=== PATIENT | female | born 1935 | race Caucasian/White ===

== ENCOUNTER 2017-10-06 10:15 | Emergency (ER) | payer MEDICARE ==
[~2017-10-06] VITALS: Ht 157.5 cm; Wt 84.0 kg
[~2017-10-06 10:15] MED LIST: AVAP300T PO; CALC1TAB53; CHOL1CAP6 PO; GLUC500C3 PO; NYST100024 TOP; ZOLP10TA3 PO; chondroitin
[2017-10-06 10:17] VITALS: BP 126/62; PULSE 98; RESP 20; TEMP 98.3; O2SAT 94
[2017-10-06] MEDS ORDERED: IRBE300T44 PO (10:24)
--- NOTE | 2017-10-06 11:06 | RADRPT ---
EXAM DATE/TIME: 10/06/2017 10:56 [place] COMPARISON: No previous studies available for comparison. INDICATIONS : Cough, chest congestion, short of breath, chest pains MEDICAL HISTORY : None. SURGICAL HISTORY : None. ENCOUNTER: Initial ACUITY: 1 day PAIN SCORE: 5/10 LOCATION: Bilateral chest FINDINGS: A single view of the chest demonstrates the lungs to be symmetrically aerated without evidence of mas s, infiltrate or effusion. The cardiomediastinal contours are unremarkable. Osseous structures are intact. CONCLUSION: The lungs are clear. Agustin Levy MD on October 06, 2017 at 11:04 Board Certified Radiologist. This report was verified electronically.
[2017-10-06] MEDS ORDERED: ALBUAER3 INH (11:32)
[2017-10-06] MEDS ORDERED: BENZ100 PO (11:32)
[2017-10-06] MEDS ORDERED: AZIT250T3 PO (11:32)
--- NOTE | 2017-10-06 11:32 | PD ---
HPI Chief Complaint: Cold / Flu Symptoms Time Seen by Provider: 10:43 Travel History International Travel<30 days: No Contact w/Intl Traveler<30days: No Traveled to known affect area: No History of Present Illness HPI 81-year-old female here with cough, nasal congestion, wheezing 3 days. Also reporting body aches. Symptom severity is mild to moderate. Denies fever or chills. No chest pain or shortness of breath. No orthopnea. Today she noticed the cough was productive. No aggravating or alleviating factors. Has attempted OTC NyQuil with minimal relief. PFSH Past Medical History Medical History: Denies Significant Hx Hypertension: Yes Respiratory: No Social History Alcohol Use: No Tobacco Use: No Substance Use: No Allergies-Medications (Allergen,Severity, Reaction): Coded Allergies: No Known Allergies (Unverified Adverse Reaction, Unknown, 10/06/17) Reported Meds & Prescriptions Reported Meds & Active Scripts Active Tessalon Perles (Benzonatate) 100 Mg Cap 200 Mg PO TID PRN Proair Hfa 8.5 GM Inh (Albuterol Sulfate) 90 Mcg/Act Aer 2 Puff INH Q4-6H PRN 108 mcg/actuation Azithromycin 250 Mg Tab 250 Mg PO DIRECTED Take 2 tabs (500 mg) on day 1 then 1 tab daily x 4 days. Reported Avapro (Irbesartan) 300 Mg Tab 300 Mg PO DAILY Review of Systems Except as stated in HPI: all other systems reviewed are Neg General / Constitutional: No: Fever Eyes: No: Visual changes HENT: Positive: Congestion, No: Headaches Cardiovascular: No: Chest Pain or Discomfort Respiratory: Positive: Cough, Wheezing Gastrointestinal: No: Abdominal Pain Genitourinary: No: Dysuria Musculoskeletal: No: Pain Skin: No Rash Neurologic: No: Weakness Physical Exam Narrative GENERAL: Alert and well-appearing 81-year-old female SKIN: Warm and dry. HEAD: Normocephalic. EYES: No injection or drainage. ENT: Clear nasal discharge. No pharyngeal erythema. Uvula is midline. Airways patent. Mucous membranes are moist NECK: Supple, trachea midline. CARDIOVASCULAR: Regular rate and rhythm without murmurs, gallops, or rubs. RESPIRATORY: Breath sounds equal bilaterally. No accessory muscle use. GASTROINTESTINAL: Abdomen soft, non-tender, nondistended. MUSCULOSKELETAL: No cyanosis, or edema. BACK: Nontender without obvious deformity. No CVA tenderness. Data Data Last Documented VS Vital Signs Date Time Temp Pulse Resp B/P (MAP) Pulse Ox O2 Delivery O2 Flow Rate FiO2 10/06/17 11:33 96 10/06/17 10:17 98.3 98 20 126/62 (83) Orders Orders Chest, Single Ap (10/06/17 ) Influenzae A/B Antigen (10/06/17 10:46) MDM Medical Decision Making Medical Screen Exam Complete: Yes Emergency Medical Condition: Yes Differential Diagnosis Bronchitis, pneumonia, influenza, URI Narrative Course 81-year-old female here with complaint of productive cough and wheezing. Clinically she is very well-appearing. Chest x-ray shows no acute disease. Influenza screening is negative. Her exam aches consistent with bronchitis. She will be treated with azithromycin, albuterol, Tessalon Perles. Diagnosis Primary Impression: Bronchitis Referrals: Primary Care Physician Additional Instructions: Medication as directed. Follow-up with your primary doctor. Return if you develop new or worsening symptoms Scripts Benzonatate (Tessalon Perles) 100 Mg Cap 200 MG PO TID Y for COUGH, #12 CAP 0 Refills Prov: Dania Rodrigez 10/06/17 Albuterol 8.5 GM Inh (Proair Hfa 8.5 GM Inh) 90 Mcg/Act Aer 2 PUFF INH Q4-6H Y for SHORTNESS OF BREATH, #1 INHALER 0 Refills 108 mcg/actuation Prov: Dania Rodrigez 10/06/17 Azithromycin (Azithromycin) 250 Mg Tab 250 MG PO DIRECTED for Infection, #6 TAB 0 Refills Take 2 tabs (500 mg) on day 1 then 1 tab daily x 4 days. Prov: Dania Rodrigez 10/06/17 Disposition: 01 DISCHARGE HOME Condition: Stable Dania Rodrigez October 06, 2017 11:32
[2017-10-06 11:33] VITALS: O2SAT 96
== END 2017-10-06 11:56 | disposition home or self-care (01) ==
LOC: PHEFT 10:15
DX: J40 Bronchitis, not specified as acute or chronic (principal); I10 Essential (primary) hypertension
CPT/HCPCS: 71045; 87804; 99284